=== PATIENT | male | born 1980 | race Caucasian/White ===

== ENCOUNTER 2019-05-17 09:13 | Observation (INO) ==
[2019-05-15 10:43] LABS: Basophils # (auto) 0.06 K/uL (0-0.2); Basophils % (auto) 0.7 %; Eosinophils # (auto) 0.17 K/uL (0-0.5); Eosinophils % (auto) 2.1 %; Hematocrit (blood only) 43.4 % (42-52); Hemoglobin 15.3 g/dL (14.0-18.0); Immature Granulocytes # (auto) 0.01 K/uL (0.00-0.02); Immature Granulocytes % (auto) 0.1 %; Lymphocytes # (auto) 2.12 K/uL (1.2-3.4); Lymphocytes % (auto) 26.3 %; Mean Corpuscular Hgb Conc 35.3 g/dL (32-36); Mean Corpuscular Volume 86.6 fL (80-100); Mean Platelet Volume 10.3 fL (7.4-10.4); Monocytes % (auto) 7.4 %; Neutrophils # (auto) 5.11 K/uL (1.4-6.5); Neutrophils % (auto) 63.4 %; Platelet Count 272 K/uL (130-400); RDW Coefficient of Variation 12.9 % (11.5-14.5); RDW Standard Deviation 41.2 fL (36.4-46.3); Red Blood Count 5.01 M/uL (4.7-6.1); White Blood Count 8.07 K/uL (4.8-10.8)
[2019-05-15 10:49] LABS: BUN Creatinine Ratio 11.6 (10-20); Blood Urea Nitrogen 10 mg/dl (7-18); Calcium 9.2 mg/dl (8.5-10.1); Carbon Dioxide 28 mmol/L (21-32); Chloride 107 mmol/L (98-107); Est GFR (African American) 125.7; Est GFR (Non-African American) 108.5; Glucose 90 mg/dl (70-99); Potassium 4.1 mmol/L (3.5-5.1); Sodium 141 mmol/L (136-145)
--- NOTE | 2019-05-16 13:07 | Anesthesiology Consultation ---
Date of Service May 16, 2019 Assessment & Plan (1) Encounter for pre-operative examination: - No previous anesthesia records Chart Review Chart Review: Acceptable Risk for Surgery and Patient NOT seen in Pre Admission Testing Consults Requested none History Surgery Operation Date: 05/17/19 10:20 Proposed Procedures p Total Thyroidectomy - Georgina Lopez MD s Left Radical Node Dissection, Right Selective Node Dissection - Georgina Lopez MD Height/Weight Height: 5 ft 9 in Weight: 108.862 kg Allergies Allergy/AdvReac Type Severity Reaction Status Date / Time haloperidol [From Haldol] Allergy Unknown swelling Verified 05/16/19 11:01 of tongue & throat Medications Home Medications Medication Instructions Recorded Confirmed Last Taken acetaminophen 650 mg PO TID 05/16/19 05/16/19 Unknown aripiprazole 5 mg PO QAM 05/16/19 05/16/19 Unknown bisacodyl 20 mg PO 1500 PRN 05/16/19 05/16/19 Unknown polyethylene glycol 3350 [Miralax] 17 g PO DAILY PRN 05/16/19 05/16/19 Unknown prazosin 2 mg PO HS 05/16/19 05/16/19 Unknown Past Medical History Medical History ADHD Back pain Bipolar disorder Cancer Metastatic papillary thyroid carcinoma GERD (gastroesophageal reflux disease) Diet Controlled Kidney stones Post traumatic stress disorder Temporomandibular joint disorder per pre-anesthesia questionnaire Weight loss, unintentional Past Surgical History Surgical History History of lithotripsy History of open reduction and internal fixation (ORIF) procedure left femur History of surgery on arm left forearm repair of fracture Social History Smoking Status: Unknown if ever smoked Hx Alcohol Use: No Hx Substance Use: No Testing Laboratory Results 05/15/19 Unknown 05/15/19 Unknown Electrocardiogram Date: 05/15/19 Findings: + SB @ (58) Chest X-Ray Date: 05/15/19 Findings: + NAD Other Testing PET/CT 05/13/19 IMPRESSION: 1. Numerous enlarged bilateral cervical lymph nodes consistent with the history of metastatic thyroid carcinoma. Minimal FDG uptake within these nodes which is not unexpected in papillary thyroid carcinoma. 2. Several prominent upper mediastinal lymph nodes which also likely reflect patrica spread of disease. 3. Decreased sensitivity for additional sites of metastatic thyroid carcinoma diminished given low radiotracer uptake.
--- NOTE | 2019-05-16 15:06 | History & Physical Report ---
Date of Service May 16, 2019 Assessment & Plan (1) Metastatic papillary carcinoma: Total thyroidectomy with left radical neck dissection and right functional neck dissection History of Present Illness Chief Complaint: Metastatic papillary carcinoma of the thyroid Primary Care Provider: LEODAN Huynh 38-year-old with a large 5 cm left neck mass found to have metastatic papillary carcinoma of the thyroid by needle biopsy and also right-sided level [address] scan Allergies Allergy/AdvReac Type Severity Reaction Status Date / Time haloperidol [From Haldol] Allergy Unknown swelling Verified 05/16/19 11:01 of tongue & throat Home Medications Home Medications Medication Instructions Recorded Confirmed Type acetaminophen 650 mg PO TID 05/16/19 05/16/19 History aripiprazole 5 mg PO QAM 05/16/19 05/16/19 History bisacodyl 20 mg PO 1500 PRN 05/16/19 05/16/19 History polyethylene glycol 3350 [Miralax] 17 g PO DAILY PRN 05/16/19 05/16/19 History prazosin 2 mg PO HS 05/16/19 05/16/19 History Past Med/Surg History Medical History ADHD Back pain Bipolar disorder Cancer Metastatic papillary thyroid carcinoma GERD (gastroesophageal reflux disease) Diet Controlled Kidney stones Post traumatic stress disorder Temporomandibular joint disorder per pre-anesthesia questionnaire Weight loss, unintentional Surgical History History of lithotripsy History of open reduction and internal fixation (ORIF) procedure left femur History of surgery on arm left forearm repair of fracture Social History Current Living Situation Comment: leodan huynh Smoking Status: Unknown if ever smoked Hx Alcohol Use: No Hx Substance Use: No Physical Exam Constitutional: WD/WN, vitals as above Eyes: PERRL, conjunctivae normal, anicteric sclerae ENMT: external ear and nose normal, oropharynx normal Neck: 5 cm firm left neck mass Respiratory: normal respiratory effort, lungs clear to auscultation Cardiovascular: RRR, no murmur, no edema
[~2019-05-17 09:13] MED LIST: LR 15ML/HR IV SCH
[2019-05-17] MEDS ORDERED: ROCURONIUM BROMIDE 10 MG/ML 5 ML VIAL ONE ×2 (09:55→12:13)
[2019-05-17] MEDS ORDERED: LIDOCAINE HCL 2% 2 ML VIAL/AMP(20MG/ML) INFIL ONE ×2 (09:55→12:13)
[2019-05-17] MEDS ORDERED: PROPOFOL IV EMULSION 10 MG/ML 20 ML VIAL IV ONE ×2 (09:55→12:13)
[2019-05-17] MEDS ORDERED: MIDAZOLAM HCL 1 MG/ML 2ML VIAL ONE (09:55)
[2019-05-17] MEDS ORDERED: fentaNYL citrate 100 MCG/2 ML VIAL ONE ×2 (09:55→11:45)
--- NOTE | 2019-05-17 10:27 | History & Physical Bridge Note ---
Date of Service May 17, 2019 History & Physical Bridge Note I have examined the patient, reviewed the History & Physical and in the interval since the performance of the History & Physical I have noted the following changes of clinical significance: no changes noted
[2019-05-17] MEDS ORDERED: LIDOCAINE/EPINE 2% 1:100,000 20ML ONE (10:44)
[2019-05-17] MEDS ORDERED: BACITRACIN OINT 15 GM TUBE ONE (10:44)
[2019-05-17] MEDS ORDERED: CEFAZOLIN 250 MG/ML 1 GM VIAL ONE (11:44)
[2019-05-17] MEDS ORDERED: CEFAZOLIN 2000MG 2,000 MG/15 ML SYR IV ONE (11:45)
[2019-05-17] MEDS ORDERED: LABETALOL HCL IV 5 MG/ML 20ML IV PRN (12:04)
[2019-05-17] MEDS ORDERED: FLUMAZENIL 0.1 MG/1 ML 10 ML VIAL IV PRN (12:04)
[2019-05-17] MEDS ORDERED: ONDANSETRON INJ 2 MG/ML 2 ML VIAL IV PRN ×2 (12:04→16:42)
[2019-05-17] MEDS ORDERED: PROMETHAZINE HCL 12.5 MG in SODIUM CHLORIDE 0.9% 50 ML IV PRN (12:04)
[2019-05-17] MEDS ORDERED: ATROPINE SULFATE 0.1 MG/ML 10ML SYR IV PRN (12:04)
[2019-05-17] MEDS ORDERED: NALOXONE HCL 0.4 MG/1 ML VIAL/CARP IV PRN (12:04)
[2019-05-17] MEDS ORDERED: ePHEDrine sulfate 50 MG/ML AMP IV PRN (12:04)
[2019-05-17] MEDS ORDERED: ONDANSETRON INJ 2 MG/ML 2 ML VIAL ONE ×2 (12:13→15:28)
[2019-05-17] MEDS ORDERED: HYDROmorphone INJ 2 MG/ML SYR/VIAL ONE (12:41)
[2019-05-17] MEDS ORDERED: ALBUMIN HUMAN 5% 12.5 GM/250 ML VIAL IV ONE (13:23)
[2019-05-17] MEDS ORDERED: ePHEDrine sulfate 50 MG/ML SYR ONE (13:26)
[2019-05-17] MEDS ORDERED: PHENYLEPHRINE 100MCG/ML 5ML SYR ONE (13:26)
[2019-05-17] MEDS ORDERED: NEOSTIGMINE METHYLSULFATE 5 MG/5 ML SYR ONE (14:29)
[2019-05-17] MEDS ORDERED: GLYCOPYRROLATE 0.2 MG/ML VIAL ONE (14:29)
[2019-05-17] MEDS: HYDROmorphone INJ 1 MG/ML SYRINGE IV PRN ×7 (16:37→17:15)
--- NOTE | 2019-05-17 17:00 | Operative Report ---
Post Operative Report Pre & Post Diagnosis Operation Date: 05/17/19 10:20 Pre-Op Diagnosis: Metastatic papillary carcinoma Post-Op Diagnosis: Metastatic papillary carcinoma Procedure Operation Date: 05/17/19 10:20 Actual Procedures p Total Thyroidectomy, left radical neck dissection, right selective node dissection(Bilateral) - Georgina Lopez MD Surgeon Georgina Lopez MD Gar[employer] Installer None Estimated Blood Loss 300 Findings Consistent with Post-Op Diagnosis Large left neck tumor invading jugular vein Specimens Left modified neck contents, total thyroidectomy, and selective right neck node excision Drains Thai-Deshpande Anesthesia Type General Complications none Disposition Accompanied Patient To Recovery: Yes Disposition: Recovery Room Indications 38-year-old with large 4.1 cm firm semi-fixed left neck mass and a 1.9 cm node on the right neck with needle biopsy showing papillary carcinoma of the thyroid Description of Procedure He was brought to the operating room, properly identified, prepped with ChloraPrep and draped in the usual sterile manner after general endotracheal anesthesia. The neck was hyperextended for thyroidectomy. The incision line was marked and was extended horizontal thyroidectomy incision extending laterally to the trapezius muscle left neck and extending superiorly to just b elow the mastoid process and also extending the thyroid incision on the right side to the trapezius and following the trapezius slightly upward. The incision line was injected with 2% Xylocaine with 1-100,000 strength epinephrine and then the incision was made using the #10 and #15 blade carrying the incision down through the skin and subcutaneous layer and through the platysma layer and then elevating superior and inferior and posterior skin flaps to expose the surgical field up to the hyoid superiorly and to both trapezius muscles. Bleeders were controlled using the Bovie and bipolar cautery. The left neck dissection was carried out by dissecting the supra-auricular fat pad following the clavicle all the way laterally to the trapezius and then following the trapezius superiorly to the greater auricular nerve and then identifying the spinal accessory nerve at Erb's point and then following the nerve superiorly underneath the sternocleidomastoid preserving the sternocleidomastoid by peeling the fascia away from the muscle and then dissecting the supra clavicular fat pad and the left posterior neck level 5 nodes away from the scalene muscles using the harmonic scalpel and the Metzenbaum scissors. The large node was found beneath the sternocleidomastoid muscle and was delivered underneath the sternocleidomastoid muscle anteriorly noting that the tumor was adherent to the jugular vein. The jugular vein was dissected free clamped below and above the tumor, divided, suture ligated using 2-0 silk vascular sutures superiorly and inferiorly. The midportion of the jugular vein was dissected along with the large tumor anteriorly to the carotid sheath and then dissected away from the carotid sheath and freed and sent as level 234 and 5 nodes. Hemostasis was controlled using the bipolar cautery and use of Iliana powder. Attention was turned to the right neck or posterior neck dissection was performed in the level 5 area identifying the 1.9 cm node just posterior to the jugular vein, preserving the jugular vein and dissecting the node away from the vein and resecting the nose along with the supra clavicular fat pad with the level 5 nodes. At this point midline dissection was performed the sternal hyoid and the sternal thyroid muscles and dissecting these muscles away from the thyroid gland supposing the thyroid gland and dissecting both superior poles with the harmonic scalpel and then dissecting both inferior poles with the harmonic scalpel clamping and dividing the inferior thyroidal artery and vein and also the superior thyroidal artery and vein and also the middle thyroidal vein freeing up both lobes of the thyroid. The recurrent laryngeal nerve was identified on the left side entering the cricothyroid membrane and then the left lobe was dissected free by dividing the suspensory ligament. The recurrent laryngeal nerve was also found on the right side and dissected free by dividing the suspensory ligament. In this manner the entire gland of the thyroid was removed in one piece. Hemostasis was controlled using the bipolar cautery and using Iliana powder. After obtaining adequate hemostasis a Thai-Deshpande drain was placed into the thyroid bed and into the left neck exiting the left supraclavicular area and sewn in place with 2-0 silk suture. The incision was closed with interrupted 3-0 Vicryl sutures on the platysma layer, interrupted 3- 0 Vicryl sutures on the subcutaneous layer and skin dong. A light pressure dressing was placed. He tolerated the procedure well and was taken to the recovery area in satisfactory condition where he was noted to have a normal voice. He will be admitted overnight with monitoring of serum calcium. I attest to the content of the Intraoperative Record and any orders documented therein. Any exceptions are noted below.
[2019-05-17] MEDS ORDERED: KETOROLAC 30 MG/ML VIAL ONE (17:26)
--- NOTE | 2019-05-17 17:34 | Anesthesiology Progress Note ---
Date of Service May 17, 2019 Anesthesia Post Procedure Vital Signs Vital Signs: Temp Pulse Pulse Resp BP Pulse Ox 05/17/19 17:20 37.0 C 92 H 16 132/79 94 05/17/19 17:10 36.5 C 87 16 121/81 93 05/17/19 17:00 36.5 C 96 H 16 127/80 96 05/17/19 16:50 36.5 C 98 H 16 139/85 94 05/17/19 16:40 36.5 C 94 H 16 133/80 95 05/17/19 16:30 36.5 C 100 H 16 126/81 91 05/17/19 16:24 36.5 C 109 H 10 L 118/85 93 05/17/19 10:04 36.9 C 66 18 117/79 98 Pain Intensity Posterior Head: Pain Intensity: 8 Transfer of Care Handoff Completed per policy Notes Mental Status: alert / awake / arousable Patient Amnestic to Procedure: Yes Nausea / Vomiting: adequately controlled Pain: adequately controlled Airway Patency, RR, SpO2: stable & adequate BP & HR: stable & adequate Hydration State: stable & adequate Anesthetic Complications: no major complications apparent
[2019-05-17 18:46] LABS: Calcium 8.1 mg/dl (8.5-10.1)
[2019-05-17 18:51] LABS: Albumin Level 3.8 gm/dl (3.4-5.0); Phosphorus 3.9 mg/dl (2.5-4.9)
[2019-05-17] MEDS: KETOROLAC 30 MG/ML VIAL IV PRN (20:24)
[2019-05-17] MEDS: OXYCODONE/ACETAMINOPHEN 5mg/325mg TAB PO PRN (21:31)
[2019-05-18] MEDS: OXYCODONE/ACETAMINOPHEN 5mg/325mg TAB PO PRN ×3 (01:08→11:01)
[2019-05-18] MEDS: LACTATED RINGER'S 1,000 ML IV SCH ×2 (01:11→12:16)
[2019-05-18] MEDS: KETOROLAC 30 MG/ML VIAL IV PRN ×2 (02:27→08:51)
--- NOTE | 2019-05-18 10:12 | Surgery Progress Note ---
Date of Service May 18, 2019 Assessment & Plan (1) Metastatic papillary carcinoma: Doing well status post thyroidectomy, incision site clean with no sign of hematoma, calcium 8.1. He will be discharged and transferred to the [facility] where he will receive further care. Subjective Feels well healing after thyroidectomy Physical Exam Neck: The incision line is clean dressing in place and Thai-Deshpande drain had 100 cc of drainage Respiratory: normal respiratory effort, lungs clear to auscultation Cardiovascular: RRR, no murmur, no edema Results & Data Vital Signs (Past 12 Hours) Vital Signs Temp Pulse Resp BP Pulse Ox 05/18/19 02:48 36.7 C 71 16 112/70 97 05/17/19 23:06 36.8 C 74 15 110/72 97
--- NOTE | 2019-05-18 10:17 | Discharge Summary ---
Date of Service May 18, 2019 Admission HPI Per Admitting Provider 38-year-old with a large 5 cm left neck mass found to have metastatic papillary carcinoma of the thyroid by needle biopsy and also right-sided level [address] scan Admission Exam (Per Admitting) Neck Status post total thyroidectomy and left modified neck dissection and right selective node dissection with incision line clean and healing well with no sign of hematoma with Thai-Deshpande drain in place. Discharge Data Procedures Performed Operation Date: 05/17/19 10:20 Actual Procedures p Total Thyroidectomy, left radical neck dissection, right selective node dissection(Bilateral) - Georgina Lopez MD Discharge Instructions He is to be transferred to [facility] for further monitoring. Please give Percocet as needed for pain and change to the Toradol in 7 days when there is no further bleeding. Please remove the drain next week when the drainage dropped below 30 cc/day. Please remove the dong in 10 days. Please arrange for radioactive iodine treatment approximately 6 weeks after surgery.
== END 2019-05-18 14:16 ==
LOC: 3W 09:13 → ASU 09:13
DX: F90.9 Attention-deficit hyperactivity disorder, unspecified type; K21.9 Gastro-esophageal reflux disease without esophagitis; Z79.899 Other long term (current) drug therapy; R63.4 Abnormal weight loss; C73 Malignant neoplasm of thyroid gland; R22.1 Localized swelling, mass and lump, neck; C79.89 Secondary malignant neoplasm of other specified sites; Z88.8 Allergy status to other drugs, medicaments and biological substances; F31.9 Bipolar disorder, unspecified

== ENCOUNTER 2019-05-26 20:37 | Inpatient (IN) ==
[2019-05-26] MEDS ORDERED: SODIUM CHLORIDE 0.9% 1000ML 1,000 ML IV SCH (21:00)
[2019-05-26 21:27] LABS: iSTAT Creatinine 0.9 mg/dl (0.6-1.3); iSTAT Hemoglobin 13.9 g/dl (14.0-18.0); iSTAT Ionized Calcium 1.21 mmol/l (1.12-1.32); iSTAT Potassium 3.6 mEq/L (3.3-5.0)
--- NOTE | 2019-05-26 21:29 | XRay Report ---
XR chest 1V portable HISTORY: weakness COMPARISON: Chest 07/08/2013. FINDINGS: The lungs are clear. Cardiac silhouette is normal in size. No pleural effusions. No pneumot horax. Skin dong along the lower neck. The trachea appears midline and patent. IMPRESSION: Postoperative changes within the lower neck. No acute process within the chest. Electronically signed by: Yury Gagnon M.D. 05/26/2019 9:28 PM
[2019-05-26] MEDS ORDERED: IOVERSOL 100ml IV PRN (21:32)
[2019-05-26 21:36] LABS: Basophils # (auto) 0.03 K/uL (0-0.2); Basophils % (auto) 0.3 %; Eosinophils # (auto) 0.28 K/uL (0-0.5); Eosinophils % (auto) 3.1 %; Hematocrit (blood only) 40.3 % (42-52); Hemoglobin 14.3 g/dL (14.0-18.0); Immature Granulocytes # (auto) 0.02 K/uL (0.00-0.02); Immature Granulocytes % (auto) 0.2 %; Lymphocytes # (auto) 2.73 K/uL (1.2-3.4); Lymphocytes % (auto) 30.3 %; Mean Corpuscular Hemoglobin 30.8 pg (25-34); Mean Corpuscular Hgb Conc 35.5 g/dL (32-36); Mean Corpuscular Volume 86.9 fL (80-100); Mean Platelet Volume 9.5 fL (7.4-10.4); Monocytes # (auto) 0.65 K/uL (0.11-0.59); Monocytes % (auto) 7.2 %; Neutrophils # (auto) 5.31 K/uL (1.4-6.5); Neutrophils % (auto) 58.9 %; Platelet Count 341 K/uL (130-400); RDW Coefficient of Variation 13.6 % (11.5-14.5); RDW Standard Deviation 42.5 fL (36.4-46.3); Red Blood Count 4.64 M/uL (4.7-6.1); White Blood Count 9.02 K/uL (4.8-10.8)
[2019-05-26 21:55] LABS: Albumin Level 3.7 gm/dl (3.4-5.0); BUN Creatinine Ratio 11.4 (10-20); Calcium 8.9 mg/dl (8.5-10.1); Creatinine Clr Calc Pharmacy 134.4 ml/min; Est GFR (African American) 124.5; Est GFR (Non-African American) 107.5; Potassium 3.7 mmol/L (3.5-5.1)
[2019-05-26 21:58] LABS: Albumin Globulin Ratio 1.2 (0.9-2); Bilirubin,Total 0.2 mg/dl (0.2-1); Total Protein 6.7 gm/dl (6.4-8.2)
--- NOTE | 2019-05-26 21:58 | CT Scan Report ---
CT soft tissue neck w con HISTORY: swelling post thyroidectomy TECHNIQUE: Multiaxial CT images of the neck were performed following the use of intravenous contrast. COMPARISON STUDY: Neck CT 05/18/2019. FINDINGS: The visualized brain parenchyma and orbits are unremarkable. Skin dong at the anterior i nferior neck base and along the left side of the neck. There is progressive diffuse subcutaneous shakeel a within the neck most pronounced anteriorly. Trace fluid at the thyroidectomy site. Partially cystic lymphadenopathy is again noted. These remain unchanged. There are are a few enlarged retropharyngeal lymph nodes. This likely represents metastatic disease. Partially loculated left lateral neck/suprac lavicular fluid collection measuring 5.6 x 3.3 cm. This is lateral to the sternocleidomastoid muscle and deep to the incision site. Mildly enlarged and partially cystic superior mediastinal lymph nodes also consistent with metastatic disease. No pneumothorax. No suspicious lytic or blastic osseous lesi ons. The paranasal sinuses and mastoid air cells are clear. The carotid and vertebral arteries are pa tent. The right internal jugular vein is patent. The left internal jugular vein at the base of the ne ck appears thrombosed. This is similar to the prior study. Normal esophagus. There is mild submucosal edema within the hypopharynx including the epiglottis and supraglottic soft tissues. The epiglottis measures 3.5 mm in thickness. This results in partial effacement of the hypopharynx/airway of up to 5 0% compared to the prior study. Partially calcified left sublingual soft tissue density remains uncha nged. There is also a small amount of fluid surrounding the right sternocleidomastoid muscle. IMPRESSION: 1. Mild submucosal edema within the hypopharynx including the epiglottis and supraglottic soft tissue s. The epiglottis measures 3.5 mm in thickness. This results in partial effacement of the hypopharynx /airway at the level of the epiglottis and supraglottic soft tissues of up to 50% compared to the margot or study. Intubation could be performed for airway protection. 2. Subcutaneous edema has progressed throughout the neck. This is most pronounced anteriorly. 3. There is a partially loculated fluid collection within the left lateral neck base measuring 5.6 x 3.3 cm. This favors a postoperative seroma at this time. 4. Metastatic lymphadenopathy within the neck and chest is again noted. 5. The left internal jugular vein at the level of the neck base appears thrombosed. This is unchanged compared to the prior study. Electronically signed by: Yury Gagnon M.D. 05/26/2019 9:56 PM
[2019-05-26] MEDS ORDERED: PIPERACILLIN/TAZOBACTAM 4.5 GM/120 ML BAG IV ONE (23:15)
[2019-05-26] MEDS ORDERED: PIPERACILL/TAZOBAC CONSULT ACTIVE PRN (23:15)
[2019-05-26] MEDS ORDERED: HYDROmorphone INJ 0.5 MG/0.5 ML SYR IV PRN (23:16)
[2019-05-26] MEDS ORDERED: DEXAMETHASONE **PF** INJ 10 MG/ML VIAL IV ONE (23:17)
--- NOTE | 2019-05-26 23:44 | History & Physical Report ---
Date of Service May 26, 2019 Assessment & Plan (1) Post-operative pain: (2) Postoperative deep vein thrombosis: (3) Metastatic papillary carcinoma: (4) PTSD (post-traumatic stress disorder): (5) Partial obstruction of airway: 38-year-old male with history of metastatic papillary thyroid cancer status post total thyroidectomy (left radical neck dissection, right selective node dissection) on 05/17/[address] Lopez presents with worsening neck swelling and discomfort. Concern for submucosal edema causing partial airway obstruction, seroma and persistent left IJ vein thrombosis Partial airway obstruction secondary to submucosal edema and seroma Afebrile, on room air No WBC elevation CT neck ST 05/19/19: acute nearly occlusive deep venous thrombus within the left internal jugular vein; subcutaneous edema, deep tissue air with skin dong and surgical drainage catheter but no drainable fluid collection and airway was patent CT neck ST 05/26/19: Mild submucosal edema within the hypopharynx including the epiglottis and supraglottic soft tissues, epiglottis measures 3.5 mm in thickness resulting in partial effacement of the hypopharynx/airway at the level of the epiglottis and supraglottic soft tissues of up to 50% compared to the prior study; Subcutaneous edema has progressed throughout the neck most pronounced anteriorly; there is a partially loculated fluid collection within the left lateral neck base measuring 5.6 x 3.3 cm - favors a postoperative seroma, left IJ vein still thrombosed Chest x-ray negative Received dexamethasone and Zosyn in the ED On dexamethasone 4 mg every 6 hours scheduled and Zosyn Admitted to the ICU for observation and possible airway management 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 Montana spoken to by ED doc and will evaluate patient in the morning Left IJ vein thrombosis Thrombosis of jugular vein secondary to surgical ligation No anticoagulation required History of PTSD/bipolar Continue aripiprazole and prazosin FEN/GI: Normal saline 125 cc/h, n.p.o. for possible procedure DVT prophylaxis: SCD only, chemical not ordered in the setting of seroma Code: Full per discussion with patient (per patient he has DNR on record at the correction but he wishes resuscitation attempt -explained in that event he will not be DNR and patient advised to change records at correction) Disposition: ICU History of Present Illness Chief Complaint: Neck swelling and discomfort Primary Care Provider: LEODAN Huynh 38-year-old male with history of metastatic papillary thyroid cancer status post total thyroidectomy (left radical neck dissection, right selective node dissection) on 05/17/[address] Lopez presents with worsening neck swelling and discomfort. Patient had presented previously to the emergency room on 05/19/2019, was found to have acute nearly occlusive deep venous thrombus within the left internal jugular vein but not started on anticoagulation; subcutaneous edema, deep tissue air with skin dong and surgical drainage catheter but no drainable fluid collection and airway was patent. Today he presents with throat pain when eating or drinking especially foods that are not hot or cold and tightness in throat especially when he lays down. Associated with left shoulder and upper chest tightness as well, chills and sweats at night. Reports not getting adequate pain management at the [facility] and was sent back to the emergency room. Tonight he was found to have: Mild submucosal edema within the hypopharynx including the epiglottis and supraglottic soft tissues, epiglottis measures 3.5 mm in thickness resulting in partial effacement of the hypopharynx/airway at the level of the epiglottis and supraglottic soft tissues of up to 50% compared to the prior study; Subcutaneous edema has progressed throughout the neck most pronounced anteriorly; there is a partially loculated fluid collection within the left lateral neck base measuring 5.6 x 3.3 cm - favors a postoperative seroma, left IJ vein still thrombosed. Patient denies any shortness of breath and remains on room air in the ED. Denies any fever, chest pain, abdominal pain, nausea, vomiting, diarrhea, constipation, dysuria, hematuria. Allergies Allergy/AdvReac Type Severity Reaction Status Date / Time haloperidol [From Haldol] Allergy Severe Swelling Verified 05/26/19 22:57 of tongue and throat Home Medications Home Medications Medication Instructions Recorded Confirmed Type acetaminophen 650 mg PO TID PRN 05/16/19 05/26/19 History aripiprazole 5 mg PO QAM 05/16/19 05/26/19 History prazosin 2 mg PO HS 05/16/19 05/26/19 History ibuprofen 600 mg PO TID PRN 05/18/19 05/26/19 History Past Med/Surg History Medical History ADHD Back pain Bipolar disorder Cancer Metastatic papillary thyroid carcinoma GERD (gastroesophageal reflux disease) Diet Controlled Kidney stones Post traumatic stress disorder Temporomandibular joint disorder per pre-anesthesia questionnaire Weight loss, unintentional Surgical History History of lithotripsy History of open reduction and internal fixation (ORIF) procedure left femur History of surgery on arm left forearm repair of fracture Family History Other No pertinent family history Social History Current Living Situation Comment: leodan huynh Feels Safe at Home: Yes Smoking Status: Former smoker Hx Alcohol Use: No Hx Substance Use: No Review of Systems Review of Systems: As per HPI Physical Exam Physical Exam: General: In NAD Neuro: A&O x 4, CN 2-12 intact, PERRL Neck: surgical sutures intact with localized erythema, significant anterior neck and L sided neck fullness/edema and TTP, no crepitus, or erythema appreciated Pulm: CTAB equal breath sounds bilaterally, no stridor or use of accessory muscles CV: RRR, no m/r/g Abdomen:+BS, no TTP in all quadrants, non-distended LE: no LE edema, no calf TTP Results & Data Vital Signs (Past 12 Hours) Vital Signs Temp Pulse Resp BP Pulse Ox 05/26/19 22:20 64 7 L 97 05/26/19 22:10 69 9 L 97 05/26/19 22:00 67 12 130/82 96 05/26/19 21:50 68 9 L 91 05/26/19 21:42 74 12 135/86 97 05/26/19 21:13 97 05/26/19 21:11 77 95 05/26/19 21:09 78 117/91 96 05/26/19 21:00 17 05/26/19 20:58 74 19 05/26/19 20:40 36.8 C 76 18 142/86 H 99 Laboratory Results Abnormal lab results 05/26/19 05/26/19 05/26/19 Range/Units 20:56 20:56 21:13 RBC 4.64 L (4.7-6.1) M/uL POC Hgb 13.9 L (14.0-18.0) g/dl Hct 40.3 L (42-52) % POC Hct 41 L (42-52) % Sampson # (Auto) 0.65 H (0.11-0.59) K/uL Glucose 100 H (70-99) mg/dl AST 13 L (15-37) U/L Diagnostic Findings CT soft tissue neck w con HISTORY: swelling post thyroidectomy TECHNIQUE: Multiaxial CT images of the neck were performed following the use of intravenous contrast. COMPARISON STUDY: Neck CT 05/18/2019. FINDINGS: The visualized brain parenchyma and orbits are unremarkable. Skin dong at the anterior inferior neck base and along the left side of the neck. There is progressive diffuse subcutaneous edema within the neck most pronounced anteriorly. Trace fluid at the thyroidectomy site. Partially cystic lymphadenopathy is again noted. These remain unchanged. There are are a few enlarged retropharyngeal lymph nodes. This likely represents metastatic disease. Partially loculated left lateral neck/supraclavicular fluid collection measuring 5.6 x 3.3 cm. This is lateral to the sternocleidomastoid muscle and deep to the incision site. Mildly enlarged and partially cystic superior mediastinal lymph nodes also consistent with metastatic disease. No pneumothorax. No suspicious lytic or blastic osseous lesions. The paranasal sinuses and mastoid air cells are clear. The carotid and vertebral arteries are patent. The right internal jugular vein is patent. The left internal jugular vein at the base of the neck appears thrombosed. This is similar to the prior study. Normal esophagus. There is mild submucosal edema within the hypopharynx including the epiglottis and supraglottic soft tissues. The epiglottis measures 3.5 mm in thickness. This results in partial effacement of the hypopharynx/airway of up to 50% compared to the prior study. Partially calcified left sublingual soft tissue density remains unchanged. There is also a small amount of fluid surrounding the right sternocleidomastoid muscle. IMPRESSION: 1. Mild submucosal edema within the hypopharynx including the epiglottis and supraglottic soft tissues. The epiglottis measures 3.5 mm in thickness. This results in partial effacement of the hypopharynx/airway at the level of the epiglottis and supraglottic soft tissues of up to 50% compared to the prior study. Intubation could be performed for airway protection. 2. Subcutaneous edema has progressed throughout the neck. This is most pronounced anteriorly. 3. There is a partially loculated fluid collection within the left lateral neck base measuring 5.6 x 3.3 cm. This favors a postoperative seroma at this time. 4. Metastatic lymphadenopathy within the neck and chest is again noted. 5. The left internal jugular vein at the level of the neck base appears thrombosed. This is unchanged compared to the prior study. XR chest 1V portable HISTORY: weakness COMPARISON: Chest 07/08/2013. FINDINGS: The lungs are clear. Cardiac silhouette is normal in size. No pleural effusions. No pneumothorax. Skin dong along the lower neck. The trachea appears midline and patent. IMPRESSION: Postoperative changes within the lower neck. No acute process within the chest. Code Status & VTE Plan Code Status Full VTE Prophylaxis Plan VTE Prophylaxis will be ordered: Yes Supervising Physician Co-Signing Physician Notes Patient seen and examined, chart reviewed, case discussed with Dr. Al and I agree with her assessment and plan as documented above. Briefly patient is a 38-year-old male with history of papillary thyroid cancer status post total thyroidectomy performed by Dr. Lopez on 05-17-19 presenting with worsening neck swelling and pain. Patient seen for the same on 825. He denies shortness of breath, stridor Physical exam he is afebrile, hemodynamically stable, adequate oxygen saturation on room air HEENT: Surgical wound with dong in place, well approximated with no bleeding/drainage/dehiscence. Tissue surrounding incision is swollen and tender, but soft. No stridor Heart: S1-S2 present, regular, no murmurs rubs gallops Lungs: CTA Abdomen: Soft, nontender nondistended Extremities: No edema Labs and images reviewed CT soft tissue neck with contrast iMPRESSION: 1. Mild submucosal edema within the hypopharynx including the epiglottis and supraglottic soft tissues. The epiglottis measures 3.5 mm in thickness. This results in partial effacement of the hypopharynx/airway at the level of the epiglottis and supraglottic soft tissues of up to 50% compared to the prior study. Intubation could be performed for airway protection. 2. Subcutaneous edema has progressed throughout the neck. This is most pronounced anteriorly. 3. There is a partially loculated fluid collection within the left lateral neck base measuring 5.6 x 3.3 cm. This favors a postoperative seroma at this time. 4. Metastatic lymphadenopathy within the neck and chest is again noted. 5. The left internal jugular vein at the level of the neck base appears thr ombosed. This is unchanged compared to the prior study. Per review of ER records from 05/19 in regards to the left IJ thrombosis. This was discussed between Dr. Veras and Dr. Lopez. Dr. Lopez reports that the tumor ran throughout the jugular vein and during the surgical procedure he had to clamp and ligate the jugular vein. Finding of thrombosis was expected. No need for anticoagulation. Assessment/plan. 38-year-old male status post thyroidectomy for papillary thyroid cancer presenting with worsening edema of the soft tissues, epiglottis and supraglottic as well as a seroma in the lateral neck base. Concern for airway encroachment. Patient at this time is perfectly stable from a respiratory standpoint. No stridor or shortness of breath. He does report a feeling of fullness in his neck but this has not progressed. I explained to him that the swelling could continue and that he may need a breathing tube. Patient voiced understanding and is agreeable to having a tube placed should it become necessary. Today the case was discussed between ER attending and covering ENT physician Dr. Montana -Observation in the MICU -Dexamethasone for airway edema -Empiric Lovenox -Manger plan as above PG Care Time/CCT Total # of Minutes Spent Total Time Spent with Patient: Total time spent is greater than 50% in coordination of care (as documented) at patient's floor/unit and/or counseling patient: Resident Activity Tracking Resident Involvement: Resident Care Provided Care Provided: Adult Hospital Medicine (1) Postoperative deep vein thrombosis Encounter type: initial encounter Qualified Code(s): T81.89XA - Other complications of procedures, not elsewhere classified, initial encounter; I82.409 - Acute embolism and thrombosis of unspecified deep veins of unspecified lower extremity
--- NOTE | 2019-05-27 01:09 | Emergency Department Note ---
Entered by Joann Sierra acting as a scribe for Yolanda Marshall MD History of Present Illness General Chief complaint: Throat Pain Stated complaint: SWELLING - CANT SWALLOW Source: patient History of Present Illness Onset (ago): day(s) (earlier today) Location: neck Pain Consistency: + constant Maximum Pain Intensity: 9 Quality: + other (swelling) Associated symptoms: + shortness of breath (while lying down) and + other (pain while taking a deep breath, scratchy throat); no fever/chills The patient is a 38 year old male who presents to the Emergency Room with complaints of constant pain and swelling in his neck beginning earlier today. The patient reports having thyroid cancer surgery done by Dr. Lopez 05/17 at our facility. He states that he went to the [facility] for the swelling today asking for an ice pack and was referred to the ER as the neck "looked worse." He reports pain while taking a deep breath and a scratchy throat. He also notes shortness of breath when lying down. He denies any fever. Home Medications Home Medications Medication Instructions Recorded Confirmed Type acetaminophen 650 mg PO TID PRN 05/16/19 05/26/19 History aripiprazole 5 mg PO QAM 05/16/19 05/26/19 History prazosin 2 mg PO HS 05/16/19 05/26/19 History ibuprofen 600 mg PO TID PRN 05/18/19 05/26/19 History Allergies Allergy/AdvReac Type Severity Reaction Status Date / Time haloperidol [From Haldol] Allergy Severe Swelling Verified 05/26/19 22:57 of tongue and throat Past Med/Surg History Medical History ADHD Back pain Bipolar disorder Cancer Metastatic papillary thyroid carcinoma GERD (gastroesophageal reflux disease) Diet Controlled Kidney stones Post traumatic stress disorder Temporomandibular joint disorder per pre-anesthesia questionnaire Weight loss, unintentional Surgical History History of lithotripsy History of open reduction and internal fixation (ORIF) procedure left femur History of surgery on arm left forearm repair of fracture Family History Other No pertinent family history Social History Current Living Situation Comment: [facility] Feels Safe at Home: Yes Smoking Status: Former smoker Hx Alcohol Use: No Hx Substance Use: No Review of Systems See HPI for pertinent positives & negatives. and A total of 10 systems reviewed and were otherwise negative Physical Exam Vital Signs Vital Signs - 24 hr 05/26/19 20:40 05/26/19 20:58 05/26/19 21:00 Temperature 36.8 C Temperature Source Oral Sepsis Recent Fever Within 48 Hours No Sepsis New/Unexplained Change in Mental Status No Sepsis Action Taken by Nursing No Action Required Pulse Rate 76 74 Pulse Rate from SpO2 Sensor Pulse Rhythm Regular Pulse Strength Normal Respiratory Rate 18 19 17 Respiratory Effort / Characteristics Non-Labored Respiratory Depth Normal Blood Pressure 142/86 H Blood Pressure Mean 104 Blood Pressure Position Sitting Pulse Oximetry 99 Oxygen Delivery Method Room Air 05/26/19 21:09 05/26/19 21:11 05/26/19 21:13 Temperature Temperature Source Sepsis Recent Fever Within 48 Hours Sepsis New/Unexplained Change in Mental Status Sepsis Action Taken by Nursing Pulse Rate 78 77 Pulse Rate from SpO2 Sensor 77 76 Pulse Rhythm Pulse Strength Respiratory Rate Respiratory Effort / Characteristics Respiratory Depth Blood Pressure 117/91 Blood Pressure Mean 99 Blood Pressure Position Pulse Oximetry 96 95 97 Oxygen Delivery Method Room Air Room Air Room Air 05/26/19 21:42 05/26/19 21:50 05/26/19 22:00 Temperature Temperature Source Sepsis Recent Fever Within 48 Hours Sepsis New/Unexplained Change in Mental Status Sepsis Action Taken by Nursing Pulse Rate 74 68 67 Pulse Rate from SpO2 Sensor 74 69 66 Pulse Rhythm Pulse Strength Respiratory Rate 12 9 L 12 Respiratory Effort / Characteristics Respiratory Depth Blood Pressure 135/86 130/82 Blood Pressure Mean 102 98 Blood Pressure Position Pulse Oximetry 97 91 96 Oxygen Delivery Method Room Air 05/26/19 22:10 05/26/19 22:20 Temperature Temperature Source Sepsis Recent Fever Within 48 Hours Sepsis New/Unexplained Change in Mental Status Sepsis Action Taken by Nursing Pulse Rate 69 64 Pulse Rate from SpO2 Sensor 70 64 Pulse Rhythm Pulse Strength Respiratory Rate 9 L 7 L Respiratory Effort / Characteristics Respiratory Depth Blood Pressure Blood Pressure Mean Blood Pressure Position Pulse Oximetry 97 97 Oxygen Delivery Method Vital signs reviewed. General: Well-appearing middle aged male, in no significant distress. Resting in bed comfortably. HEENT:Large incision to the inferior part of neck anteriorly, dong in place, moderate amount soft tissue, swelling from mandible to incision site, positive tenderness, no palpable fluid collection and no drainage , posterior oropharynx is clear No scleral icterus, PERRLA, neck supple. No stridor. Cardiovascular: Regular rate and rhythm, no extra sounds. Pulmonary: Clear to auscultation bilaterally, normal work of breathing. Abdomen: Soft, nontender, nondistended, positive bowel sounds. Musculoskeletal: Atraumatic, no peripheral edema. Neurologic: Patient awake alert and oriented x 3 Skin: Warm, dry, no rash Course 2100: Past medical records reviewed. The patient was evaluated in room A04. A complete history and physical exam was performed. 2344: Upon reevaluation, I discussed findings and results with the patient. He verbalized agreement of the treatment plan. I spoke with Dr. Ordaz of the [facility] Hospitalist Service. The patient will be evaluated for further management and care. Administered Medications Hydromorphone HCl (Dilaudid) 0.5 mg IV Q30M PRN PRN Reason: Pain Stop: 06/09/19 23:15 Last Admin: 05/26/19 23:35 Dose: 0.5 mg Documented by: [id number] Sodium Chloride (Nss 1000ml) 1,000 mls @ 125 mls/hr IV .Q8H RENARD Stop: 05/27/19 04:59 Last Admin: 05/26/19 21:08 Dose: 125 mls/hr Documented by: [id number] Ioversol (Optiray 320 100ml) 94 ml IV ONCE PRN PRN Reason: Interaction Checking Stop: 05/30/19 21:31 Last Admin: 05/26/19 21:32 Dose: 94 ml Documented by: [id number] Discontinued Medications Dexamethasone Sodium Phosphate (Decadron Pf) 10 mg IV NOW ONE Stop: 05/26/19 23:18 Last Admin: 05/26/19 23:34 Dose: 10 mg Documented by: [id number] Piperacillin Sod/Tazobactam Sod (Zosyn) 4.5 gm in 120 mls @ 240 mls/hr IV NOW ONE Stop: 05/26/19 23:44 Last Infusion: 05/27/19 00:28 Dose: 0 mls/hr Documented by: [id number] Admin: 05/26/19 23:34 Dose: 240 mls/hr Documented by: [id number] Medical Decision Making Differential Diagnosis Differential diagnosis: Post-operative hematoma, seroma, abscess, cellulitis, DVT Medical Records Attestation: I reviewed the patient's medical records. Home Medications Current Medication List: was personally reviewed by me Laboratory Data Attestation: I reviewed the patient's lab results. Result diagrams: 05/26/19 20:56 05/26/19 20:56 Lab Results 05/26/19 05/26/19 05/26/19 Range/Units 20:56 20:56 21:13 WBC 9.02 (4.8-10.8) K/uL RBC 4.64 L (4.7-6.1) M/uL Hgb 14.3 (14.0-18.0) g/dL POC Hgb 13.9 L (14.0-18.0) g/dl Hct 40.3 L (42-52) % POC Hct 41 L (42-52) % MCV 86.9 (80-100) fL MCH 30.8 (25-34) pg MCHC 35.5 (32-36) g/dL RDW Std Deviation 42.5 (36.4-46.3) fL RDW Coeff of Regan 13.6 (11.5-14.5) % Plt Count 341 (130-400) K/uL MPV 9.5 (7.4-10.4) fL Immature Gran % (Auto) 0.2 % Neut % (Auto) 58.9 % Lymph % (Auto) 30.3 % Hudson % (Auto) 7.2 % Eos % (Auto) 3.1 % Baso % (Auto) 0.3 % Immature Gran # (Auto) 0.02 (0.00-0.02) K/uL Neut # (Auto) 5.31 (1.4-6.5) K/uL Lymph # (Auto) 2.73 (1.2-3.4) K/uL Hudson # (Auto) 0.65 H (0.11-0.59) K/uL Eos # (Auto) 0.28 (0-0.5) K/uL Baso # (Auto) 0.03 (0-0.2) K/uL POC Sodium 140 (135-144) mEq/L Sodium 140 (136-145) mmol/L POC Potassium 3.6 (3.3-5.0) mEq/L Potassium 3.7 (3.5-5.1) mmol/L POC Chloride 101 (101-112) mEq/L Chloride 107 (98-107) mmol/L Carbon Dioxide 27 (21-32) mmol/L POC Total CO2 27 (24-31) mEq/l Anion Gap 6.0 (3-11) POC Anion Gap 16.0 (16-25) mmol/L POC BUN 9 (7-18) mg/dl BUN 10 (7-18) mg/dl Creatinine 0.88 (0.6-1.4) mg/dl POC Creatinine 0.9 (0.6-1.3) mg/dl Est Cr Clr Drug Dosing 134.4 ml/min Est GFR ( Amer) 124.5 Est GFR (Non-Af Amer) 107.5 BUN/Creatinine Ratio 11.4 (10-20) Glucose 100 H (70-99) mg/dl POC Glucose (other) 98 (70-99) mg/dl Calcium 8.9 (8.5-10.1) mg/dl POC Ioniz Calcium Chelsea 1.21 (1.12-1.32) mmol/l Total Bilirubin 0.2 (0.2-1) mg/dl AST 13 L (15-37) U/L ALT 23 (12-78) U/L Alkaline Phosphatase 51 (45-117) U/L Total Protein 6.7 (6.4-8.2) gm/dl Albumin 3.7 (3.4-5.0) gm/dl Globulin 3.0 (2.5-4.0) gm/dl Albumin/Globulin Ratio 1.2 (0.9-2) Imaging Data Radiologist's Impression: Radiology results as stated below per my review and the radiologist's interpretation: XR chest 1V portable HISTORY: weakness COMPARISON: Chest 07/08/2013. FINDINGS: The lungs are clear. Cardiac silhouette is normal in size. No pleural effusions. No pneumothorax. Skin dong along the lower neck. The trachea appears midline and patent. IMPRESSION: Postoperative changes within the lower neck. No acute process within the chest. Electronically signed by: Yury Gagnon M.D. 05/26/2019 9:[address] soft tissue neck w con HISTORY: swelling post thyroidectomy TECHNIQUE: Multiaxial CT images of the neck were performed following the use of intravenous contrast. COMPARISON STUDY: Neck CT 05/18/2019. FINDINGS: The visualized brain parenchyma and orbits are unremarkable. Skin dong at the anterior inferior neck base and along the left side of the neck. There is progressive diffuse subcutaneous edema within the neck most pronounced anteriorly. Trace fluid at the thyroidectomy site. Partially cystic lymphade nopathy is again noted. These remain unchanged. There are are a few enlarged retropharyngeal lymph nodes. This likely represents metastatic disease. Partially loculated left lateral neck/supraclavicular fluid collection measuring 5.6 x 3.3 cm. This is lateral to the sternocleidomastoid muscle and deep to the incision site. Mildly enlarged and partially cystic superior mediastinal lymph nodes also consistent with metastatic disease. No pneumothorax. No suspicious lytic or blastic osseous lesions. The paranasal sinuses and mastoid air cells are clear. The carotid and vertebral arteries are patent. The right internal jugular vein is patent. The left internal jugular vein at the base of the neck appears thrombosed. This is similar to the prior study. Normal esophagus. There is mild submucosal edema within the hypopharynx including the epiglottis and supraglottic soft tissues. The epiglottis measures 3.5 mm in thickness. This results in partial effacement of the hypopharynx/airway of up to 50% compared to the prior study. Partially calcified left sublingual soft tissue density remains unchanged. There is also a small amount of fluid surrounding the right sternocleidomastoid muscle. IMPRESSION: 1. Mild submucosal edema within the hypopharynx including the epiglottis and supraglottic soft tissues. The epiglottis measures 3.5 mm in thickness. This results in partial effacement of the hypopharynx/airway at the level of the epiglottis and supraglottic soft tissues of up to 50% compared to the prior study. Intubation could be performed for airway protection. 2. Subcutaneous edema has progressed throughout the neck. This is most pronounced anteriorly. 3. There is a partially loculated fluid collection within the left lateral neck base measuring 5.6 x 3.3 cm. This favors a postoperative seroma at this time. 4. Metastatic lymphadenopathy within the neck and chest is again noted. 5. The left internal jugular vein at the level of the neck base appears thrombosed. This is unchanged compared to the prior study. Electronically signed by: Yury Gagnon M.D. 05/26/2019 9:56 PM ECG Data Attestation: I personally reviewed and interpreted this ECG as follows: Indication: other (post operative complications) Rate (beats per minute): 76 Rhythm: sinus rhythm Findings: + other (acute tc 445); no acute ischemic change and no ectopy Blood Pressure Blood Pressure Findings: Elevated blood pressure Blood Pressure Disposition: further management by hospitalist MDM Narrative This patient was evaluated and appeared to be in no significant distress. Physical examination reveals some submandibular swelling above the level of the incision at the base of the neck. There is no appreciable drainage or palpable fluid collection. Patient has no stridor on exam and no difficulty with his secretions. He is afebrile. IV access was obtained and laboratory work was drawn. The patient was placed on the pvc monitor. He is maintaining his oxygen saturations on room air. WBC is 9.02. CT scan of the soft tissue neck was performed and is read as above. There is concern for potential airway compromise and mild epiglottis thickening. There is a partially loculated fluid collection, likely seroma in the left lateral neck base approximately 5.6 x 3.3 cm. Patient was given 10 mg of IV dexamethasone as well as Zosyn 4.5 g IV. IV fluids were given. Patient did receive 0.5 mg of IV Dilaudid for his pain. Case was discussed with Dr. Montana of ENT. He has agreed to watchful waiting as the patient has no apparent airway compromise at this time. I do not feel intubation is clinically indicated currently. Patient will be observed in the ICU under Dr. Ordaz of the hospitalist service. Dr. Clark will evaluate the patient in consultation. Impression & Plan Postoperative edema, Cancer of thyroid, Postoperative seroma, Internal jugular vein thrombosis Discharge Plan Visit Data Chief Complaint: Throat Pain Stated Complaint: SWELLING - CANT SWALLOW ED Provider: Yolanda Marshall Discharge Problem: Postoperative edema, Cancer of thyroid, Postoperative seroma, Internal jugular vein thrombosis Patient Disposition: Being Evaluated by Hospitalist Forms Stand Alone Forms: My [facility] [place] [employer]eds[employer] Prescriptions Prescriptions: No Action acetaminophen 325 mg Tablet 650 mg PO TID PRN (Reason: Pain) RF: 0 prazosin 2 mg Capsule 2 mg PO HS RF: 0 aripiprazole 5 mg Tablet 5 mg PO QAM RF: 0 ibuprofen 600 mg Tablet 600 mg PO TID PRN (Reason: Pain) RF: 0 Referrals Referrals: Lino ALCOCER [Primary Care Provider] - The scribe's documentation has been prepared under my direction and personally reviewed by me in its entirety. I confirm that the note above accurately reflects all work, treatment, procedures, and medical decision making performed by me.
[2019-05-27] MEDS ORDERED: ICU PROTOCOL FOR HYPERGLYCEMIA PRN (02:00)
[2019-05-27] MEDS ORDERED: PIPERACILL/TAZOBAC CONSULT ACTIVE PRN (02:00)
[2019-05-27] MEDS: PIPERACILLIN/TAZOBACTAM 4.5 GM in DEXTROSE 5% 100 ML IV SCH ×3 (03:10→21:31)
[2019-05-27] MEDS: KETOROLAC 30 MG/ML VIAL IV PRN ×3 (03:46→18:02)
[2019-05-27 04:46] LABS: Basophils # (auto) 0.01 K/uL (0-0.2); Basophils % (auto) 0.1 %; Eosinophils # (auto) 0.01 K/uL (0-0.5); Eosinophils % (auto) 0.1 %; Hematocrit (blood only) 38.3 % (42-52); Hemoglobin 13.6 g/dL (14.0-18.0); Immature Granulocytes # (auto) 0.03 K/uL (0.00-0.02); Immature Granulocytes % (auto) 0.3 %; Lymphocytes # (auto) 0.74 K/uL (1.2-3.4); Lymphocytes % (auto) 8.4 %; Mean Corpuscular Hemoglobin 30.6 pg (25-34); Mean Corpuscular Hgb Conc 35.5 g/dL (32-36); Mean Corpuscular Volume 86.3 fL (80-100); Mean Platelet Volume 9.4 fL (7.4-10.4); Monocytes # (auto) 0.09 K/uL (0.11-0.59); Neutrophils # (auto) 7.95 K/uL (1.4-6.5); Neutrophils % (auto) 90.1 %; Platelet Count 309 K/uL (130-400); RDW Coefficient of Variation 13.5 % (11.5-14.5); RDW Standard Deviation 42.2 fL (36.4-46.3); Red Blood Count 4.44 M/uL (4.7-6.1); White Blood Count 8.83 K/uL (4.8-10.8)
[2019-05-27 04:58] LABS: Partial Thromboplastin Time 27.6 Seconds (21.0-31.0); Prothrombin Time 10.3 Seconds (9.0-12.0)
[2019-05-27 05:05] LABS: BUN Creatinine Ratio 10.6 (10-20); Calcium 8.7 mg/dl (8.5-10.1); Creatinine Clr Calc Pharmacy 132.5 ml/min; Est GFR (African American) 124.5; Est GFR (Non-African American) 107.5; Magnesium 2.2 mg/dl (1.8-2.4); Phosphorus 2.5 mg/dl (2.5-4.9)
[2019-05-27] MEDS ORDERED: RACEPINEPHRINE 2.25% NEBU SOLN 0.5 ML VIAL NEB STA (05:08)
--- NOTE | 2019-05-27 05:32 | Critical Care Progress Note ---
Date of Service May 27, 2019 Results & Data Vital Signs (Past 12 Hours) Vital Signs Temp Pulse Pulse Resp BP BP Pulse Ox 05/27/19 05:19 78 14 95 05/27/19 05:00 87 12 117/70 96 05/27/19 04:00 36.6 C 70 17 122/78 94 05/27/19 03:00 74 9 L 113/84 96 05/27/19 02:03 36.6 C 67 17 146/95 H 98 05/27/19 02:00 67 66 17 146/95 H 94 05/27/19 01:00 69 12 128/73 94 05/27/19 00:30 67 15 128/79 94 05/27/19 00:00 67 14 131/80 93 05/26/19 23:30 65 15 133/81 97 05/26/19 22:30 70 12 118/79 97 05/26/19 22:20 64 7 L 97 05/26/19 22:10 69 9 L 97 05/26/19 22:00 67 12 130/82 96 05/26/19 21:50 68 9 L 91 05/26/19 21:42 74 12 135/86 97 05/26/19 21:13 97 05/26/19 21:11 77 95 05/26/19 21:09 78 117/91 96 05/26/19 21:00 17 05/26/19 20:58 74 19 05/26/19 20:40 36.8 C 76 18 142/86 H 99 Pulse Ox 05/27/19 05:19 05/27/19 05:00 05/27/19 04:00 05/27/19 03:00 05/27/19 02:03 05/27/19 02:00 98 05/27/19 01:00 05/27/19 00:30 05/27/19 00:00 05/26/19 23:30 05/26/19 22:30 05/26/19 22:20 05/26/19 22:10 05/26/19 22:00 05/26/19 21:50 05/26/19 21:42 05/26/19 21:13 05/26/19 21:11 05/26/19 21:09 05/26/19 21:00 05/26/19 20:58 09/01/19 20:40 PG Care Time/CCT Total # of Minutes Spent Total Time Spent with Patient: Total time spent is greater than 50% in coordination of care (as documented) at patient's floor/unit and/or counseling patient:
[2019-05-27] MEDS: dexAMETHasone 4 MG in SYRINGE 0 ML IV SCH ×3 (06:12→18:00)
[2019-05-27] MEDS: ARIPiprazole 5 MG TAB PO SCH (08:12)
--- NOTE | 2019-05-27 08:54 | Critical Care Consultation ---
Date of Consultation May 27, 2019 Assessment & Plan (1) Postoperative edema: Impression: 38-year-old male status post radical neck for thyroid cancer. He was readmitted for concern about potential loss of airway. He is doing well this morning and appears much better than the images on his CT scan. Recommendations: 1. Potential airway compromise: The patient will continue to be monitored in the ICU. He is pending repeat ENT evaluation today. Will hold on disposition until ENT is been able to evaluate him possibly with flexible laryngoscopy. Continue steroids for now. 2. I will keep the patient n.p.o. in the event he requires urgent surgical intervention. 3. Thyroid cancer: The patient will require outpatient follow-up with medical oncology or endocrine oncology. Defer to ENT. 4. Ultimate disposition will depend on ENT evaluation. Plan was discussed with patient at bedside. Questions were answered the best my ability. (2) Cancer of thyroid: (3) Postoperative seroma: (4) Partial obstruction of airway: History of Present Illness Attending Physician: Casey Rowell DO History of Present Illness Asked by hospitalist to assist in management of this patient. History is obtained from discussion with the patient at bedside as well as review the electronic medical record. The patient is a 38-year-old male status post radical neck dissection for papillary thyroid cancer approximately 1 week ago. He has noted some neck swelling and some shortness of breath. He states that he feels short of breath with lying supine. He states his voice has been slightly hoarse but he has not had any issues coughing and denies any fevers chills or night sweats. He presented to the emergency room and was evaluated with CT scan of the neck which demonstrated a seroma. There was also some partial effacement of the airway with some narrowing in the supraglottic space concerning for potential airway compromise. The patient received steroids and was admitted to the intensive care unit for management. ENT evaluation is pending this morning. The patient's review of systems is as noted on the Allergies Allergy/AdvReac Type Severity Reaction Status Date / Time haloperidol [From Haldol] Allergy Severe Swelling Verified 05/26/19 22:57 of tongue and throat Home Medications Home Medications Medication Instructions Recorded Confirmed Type acetaminophen 650 mg PO TID PRN 05/16/19 05/26/19 History aripiprazole 5 mg PO QAM 05/16/19 05/26/19 History prazosin 2 mg PO HS 05/16/19 05/26/19 History ibuprofen 600 mg PO TID PRN 05/18/19 05/26/19 History Patient History Medical History ADHD Back pain Bipolar disorder Cancer Metastatic papillary thyroid carcinoma GERD (gastroesophageal reflux disease) Diet Controlled Kidney stones Post traumatic stress disorder Temporomandibular joint disorder per pre-anesthesia questionnaire Weight loss, unintentional Surgical History History of lithotripsy History of open reduction and internal fixation (ORIF) procedure left femur History of surgery on arm left forearm repair of fracture Family History Other No pertinent family history Social History Preferred Language: Bulgarian Communication Ability: Effective Press Box Custodian Required: No Beliefs That Will Affect Care: None Current Living Situation: Other Current Living Situation Comment: [place] Other Information That Helps Us Care for You: No Feels Safe at Home: Yes Safety Concerns: Feels Safe At This Time Smoking Status: Never smoker Tobacco Type: smokeless tobacco ; Do You Dip or Chew Tobacco: Yes ; Second Hand Exposure: Yes ; Tobacco Cessation Education Requested by Patient: No Hx Alcohol Use: No Hx Substance Use: No Review of Systems Review of Systems: See H&P. No changes Physical Exam Constitutional: WD/WN, vitals as above Neck: Some swelling appreciable on the left side of the neck. No clear fluctuance identified. Trachea does not appear deviated. Voice appears normal. Respiratory: normal respiratory effort, lungs clear to auscultation Cardiovascular: RRR, no murmur, no edema Gastrointestinal (Abdomen): normal bowel sounds, soft, nontender, no hepatosplenomegaly Skin: no rashes, warm and dry Results & Data Vital Signs (Past 12 Hours) Vital Signs Temp Pulse Pulse Resp BP BP Pulse Ox 05/27/19 08:00 36.8 C 67 84 20 109/73 05/27/19 06:00 69 10 L 135/81 94 05/27/19 05:19 78 14 95 05/27/19 05:00 87 12 117/70 96 05/27/19 04:00 36.6 C 70 17 122/78 94 05/27/19 03:00 74 9 L 113/84 96 05/27/19 02:03 36.6 C 67 17 146/95 H 98 05/27/19 02:00 67 66 17 146/95 H 94 05/27/19 01:00 69 12 128/73 94 05/27/19 00:30 67 15 128/79 94 05/27/19 00:00 67 14 131/80 93 05/26/19 23:30 65 15 133/81 97 05/26/19 22:30 70 12 118/79 97 05/26/19 22:20 64 7 L 97 05/26/19 22:10 69 9 L 97 05/26/19 22:00 67 12 130/82 96 05/26/19 21:50 68 9 L 91 05/26/19 21:42 74 12 135/86 97 05/26/19 21:13 97 05/26/19 21:11 77 95 05/26/19 21:09 78 117/91 96 05/26/19 21:00 17 05/26/19 20:58 74 19 Pulse Ox 05/27/19 08:00 98 05/27/19 06:00 05/27/19 05:19 05/27/19 05:00 05/27/19 04:00 05/27/19 03:00 05/27/19 02:03 05/27/19 02:00 98 05/27/19 01:00 05/27/19 00:30 05/27/19 00:00 05/26/19 23:30 05/26/19 22:30 05/26/19 22:20 05/26/19 22:10 05/26/19 22:00 05/26/19 21:50 05/26/19 21:42 05/26/19 21:13 05/26/19 21:11 05/26/19 21:09 05/26/19 21:00 05/26/19 20:58 Laboratory Results 05/27/19 04:26 05/27/19 04:[address] of the neck independently reviewed CT soft tissue neck w con HISTORY: swelling post thyroidectomy TECHNIQUE: Multiaxial CT images of the neck were performed following the use of intravenous contrast. COMPARISON STUDY: Neck CT 05/18/2019. FINDINGS: The visualized brain parenchyma and orbits are unremarkable. Skin dong at the anterior inferior neck base and along the left side of the neck. There is progressive diffuse subcutaneous edema within the neck most pronounced anteriorly. Trace fluid at the thyroidectomy site. Partially cystic lymphad enopathy is again noted. These remain unchanged. There are are a few enlarged retropharyngeal lymph nodes. This likely represents metastatic disease. Partially loculated left lateral neck/supraclavicular fluid collection measuring 5.6 x 3.3 cm. This is lateral to the sternocleidomastoid muscle and deep to the incision site. Mildly enlarged and partially cystic superior mediastinal lymph nodes also consistent with metastatic disease. No pneumothorax. No suspicious lytic or blastic osseous lesions. The paranasal sinuses and mastoid air cells are clear. The carotid and vertebral arteries are patent. The right internal jugular vein is patent. The left internal jugular vein at the base of the neck appears thrombosed. This is similar to the prior study. Normal esophagus. There is mild submucosal edema within the hypopharynx including the epiglottis and supraglottic soft tissues. The epiglottis measures 3.5 mm in thickness. This results in partial effacement of the hypopharynx/airway of up to 50% compared to the prior study. Partially calcified left sublingual soft tissue density remains unchanged. There is also a small amount of fluid surrounding the right sternocleidomastoid muscle. IMPRESSION: 1. Mild submucosal edema within the hypopharynx including the epiglottis and supraglottic soft tissues. The epiglottis measures 3.5 mm in thickness. This results in partial effacement of the hypopharynx/airway at the level of the epiglottis and supraglottic soft tissues of up to 50% compared to the prior study. Intubation could be performed for airway protection. 2. Subcutaneous edema has progressed throughout the neck. This is most pronounced anteriorly. 3. There is a partially loculated fluid collection within the left lateral neck base measuring 5.6 x 3.3 cm. This favors a postoperative seroma at this time. 4. Metastatic lymphadenopathy within the neck and chest is again noted. 5. The left internal jugular vein at the level of the neck base appears thrombosed. This is unchanged compared to the prior study. PG Care Time/CCT Total # of Minutes Spent Total Time Spent with Patient: Total time spent is greater than 50% in coordination of care (as documented) at patient's floor/unit and/or counseling patient: (1) Postoperative seroma Procedure type: endocrine system Surgical complication system/body Area: endocrine system Qualified Code(s): E89.822 - Postprocedural seroma of an endocrine system organ or structure following an endocrine system procedure
--- NOTE | 2019-05-27 09:59 | ENT Consultation ---
Date of Consultation May 27, 2019 Assessment & Plan (1) Postoperative edema: this is expected after bilateral neck dissection, discussed management with Dr. Jeter (2) Cancer of thyroid: s/p ttal thyroid, will need I 131 Rx in 6-8 weeks (3) Postoperative seroma: this should resolve with conservative management, observe for any sign of increase or infection, delay removal of skin dong until Monday/ 2 weeks postop (4) Internal jugular vein thrombosis: this is clot in superior portion of remaining jugular s/p resection, no intervention needed History of Present Illness Reason for Consultation: neck swollen Attending Physician: Casey Rowell DO History of Present Illness s/p total thyroid, left radical neck and right selected node dissection 11 days postop, path. papillary Ca with mets, CT showed 5 cm. left neck seroma at site of RND which would br expected, essentially normal epiglottis, clot in left jugular s/p left jugular resection due to tumor involvement, feels well, hungry and thirsty, labs including calcium OK Allergies Allergy/AdvReac Type Severity Reaction Status Date / Time haloperidol [From Haldol] Allergy Severe Swelling Verified 05/26/19 22:57 of tongue and throat Home Medications Home Medications Medication Instructions Recorded Confirmed Type acetaminophen 650 mg PO TID PRN 05/16/19 05/26/19 History aripiprazole 5 mg PO QAM 05/16/19 05/26/19 History prazosin 2 mg PO HS 05/16/19 05/26/19 History ibuprofen 600 mg PO TID PRN 05/18/19 05/26/19 History Patient History Medical History ADHD Back pain Bipolar disorder Cancer Metastatic papillary thyroid carcinoma GERD (gastroesophageal reflux disease) Diet Controlled Kidney stones Post traumatic stress disorder Temporomandibular joint disorder per pre-anesthesia questionnaire Weight loss, unintentional Surgical History History of lithotripsy History of open reduction and internal fixation (ORIF) procedure left femur History of surgery on arm left forearm repair of fracture Family History Other No pertinent family history Social History Preferred Language: Belgian Communication Ability: Effective Information Security Risk Analyst Required: No Beliefs That Will Affect Care: None Current Living Situation: Other Current Living Situation Comment: [facility] Other Information That Helps Us Care for You: No Feels Safe at Home: Yes Safety Concerns: Feels Safe At This Time Smoking Status: Never smoker Tobacco Type: smokeless tobacco ; Do You Dip or C hew Tobacco: Yes ; Second Hand Exposure: Yes ; Tobacco Cessation Education Requested by Patient: No Hx Alcohol Use: No Hx Substance Use: No Physical Exam Constitutional: WD/WN, vitals as above Eyes: PERRL, conjunctivae normal, anicteric sclerae ENMT: external ear and nose normal, oropharynx normal Neck: trachea midline, no thyromegaly normal visual inspection s/p bilateral neck dissection, no sign of tracheal deviation or compression, left neck seroma not bulging, not palpable, soft, not red, incision line pink with no sign of infection Results & Data Vital Signs (Past 12 Hours) Vital Signs Temp Pulse Pulse Resp BP BP Pulse Ox 05/27/19 08:00 36.8 C 67 84 20 109/73 05/27/19 06:00 69 10 L 135/81 94 05/27/19 05:19 78 14 95 05/27/19 05:00 87 12 117/70 96 05/27/19 04:00 36.6 C 70 17 122/78 94 05/27/19 03:00 74 9 L 113/84 96 05/27/19 02:03 36.6 C 67 17 146/95 H 98 05/27/19 02:00 67 66 17 146/95 H 94 05/27/19 01:00 69 12 128/73 94 05/27/19 00:30 67 15 128/79 94 05/27/19 00:00 67 14 131/80 93 05/26/19 23:30 65 15 133/81 97 05/26/19 22:30 70 12 118/79 97 05/26/19 22:20 64 7 L 97 05/26/19 22:10 69 9 L 97 05/26/19 22:00 67 12 130/82 96 05/26/19 21:50 68 9 L 91 Pulse Ox 05/27/19 08:00 98 05/27/19 06:00 05/27/19 05:19 05/27/19 05:00 05/27/19 04:00 05/27/19 03:00 05/27/19 02:03 05/27/19 02:00 98 05/27/19 01:00 05/27/19 00:30 05/27/19 00:00 05/26/19 23:30 05/26/19 22:30 05/26/19 22:20 05/26/19 22:10 05/26/19 22:00 05/26/19 21:50 (1) Postoperative seroma Procedure type: endocrine system Surgical complication system/body Area: endocrine system Qualified Code(s): E89.822 - Postprocedural seroma of an endocrine system organ or structure following an endocrine system procedure (2) Internal jugular vein thrombosis Laterality: left Qualified Code(s): I82.C12 - Acute embolism and thrombosis of left internal jugular vein
--- NOTE | 2019-05-27 14:42 | Hospitalist Progress Note ---
Date of Service May 27, 2019 Assessment & Plan (1) Post-operative pain: (2) Postoperative deep vein thrombosis: (3) Metastatic papillary carcinoma: (4) PTSD (post-traumatic stress disorder): (5) Partial obstruction of airway: 38-year-old male with history of metastatic papillary thyroid cancer status post total thyroidectomy (left radical neck dissection, right selective node dissection) on 05/17/[address] Lopez presents with worsening neck swelling and discomfort. Concern for submucosal edema causing partial airway obstruction, seroma and persistent left IJ vein thrombosis Partial airway obstruction secondary to submucosal edema and seroma much better today, less swelling, less hoarseness, breathing easier even when laying down continue dexamethasone 4 mg every 6 hours scheduled and Zosyn ENT consult appreciated, much of the findings are to be expected continue to follow for clinical improvement possible d/c tomorrow allow patient liquids and soft diet stop IV fluids Left IJ vein thrombosis Thrombosis of jugular vein secondary to surgical ligation No anticoagulation required, this is expected finding History of PTSD/bipolar Continue aripiprazole and prazosin Subjective patient doing better since admission, less swelling, less difficulty breathing appreciate ENT consultation continue steroids, most of the findings on CT would be expected after his extensive surgery patient was able to swallow some soft foods earlier, drinking okay discussed that he could likely be d/c tomorrow, he is okay with this plan Review of Systems Review of Systems: All systems reviewed & are unremarkable except as noted in HPI & below Constitutional: no fever, no chills, no sweats, no fatigue and no weakness Ear, Nose, Mouth, Throat: + hoarseness (slight) and + pain with swallowing Cardiovascular: + chest pain Physical Exam Constitutional: WD/WN, vitals as above Eyes: PERRL, conjunctivae normal, anicteric sclerae ENMT: external ear and nose normal, oropharynx normal Neck: trachea midline, + anterior neck swelling and + neck tender; + abnormal visual inspection (large incision along left side of neck from radical dissection) Thyroid: + abnormal thyroid (surgically excised) Respiratory: normal respiratory effort, lungs clear to auscultation no stridor Cardiovascular: RRR, no murmur, no edema Gastrointestinal (Abdomen): normal bowel sounds, soft, nontender, no hepatosplenomegaly Musculoskeletal: no cyanosis or clubbing, extremities motor strength 5/5 Skin: no rashes, warm and dry Neurologic: patellar DTR's 2+ bilat, sensation intact and PERRL, EOMI, accommodation nl, no face palsy, no dysarthria Psychiatric: A+Ox3, euthymic affect Lymphatic: no cervical or axillary lymphadenopathy Results & Data Vital Signs (Past 12 Hours) Vital Signs Temp Pulse Pulse Resp BP BP Pulse Ox 05/27/19 11:45 36.8 C 75 20 134/81 96 05/27/19 11:01 71 18 95 05/27/19 11:00 70 18 118/85 94 05/27/19 10:01 76 20 96 05/27/19 10:00 73 13 138/82 91 05/27/19 09:01 78 16 95 05/27/19 09:00 74 12 109/79 94 05/27/19 08:01 75 14 93 05/27/19 08:00 36.8 C 74 84 19 123/78 109/73 94 05/27/19 07:01 70 16 93 05/27/19 07:00 69 16 109/73 93 05/27/19 06:00 69 10 L 135/81 94 05/27/19 05:19 78 14 95 05/27/19 05:00 87 12 117/70 96 05/27/19 04:00 36.6 C 70 17 122/78 94 05/27/19 03:00 74 9 L 113/84 96 Pulse Ox 05/27/19 11:45 05/27/19 11:01 05/27/19 11:00 05/27/19 10:01 05/27/19 10:00 05/27/19 09:01 05/27/19 09:00 05/27/19 08:01 05/27/19 08:00 98 05/27/19 07:01 05/27/19 07:00 05/27/19 06:00 05/27/19 05:19 05/27/19 05:00 05/27/19 04:00 05/27/19 03:00 Laboratory Results Laboratory Results - last 24 hr 05/26/19 05/26/19 05/26/19 20:56 20:56 21:13 WBC 9.02 RBC 4.64 L Hgb 14.3 POC Hgb 13.9 L Hct 40.3 L POC Hct 41 L MCV 86.9 MCH 30.8 MCHC 35.5 RDW Std Deviation 42.5 RDW Coeff of Regan 13.6 Plt Count 341 MPV 9.5 Immature Gran % (Auto) 0.2 Neut % (Auto) 58.9 Lymph % (Auto) 30.3 [place] % (Auto) 7.2 Eos % (Auto) 3.1 Baso % (Auto) 0.3 Immature Gran # (Auto) 0.02 Neut # (Auto) 5.31 Lymph # (Auto) 2.73 [place] # (Auto) 0.65 H Eos # (Auto) 0.28 Baso # (Auto) 0.03 PT INR APTT PTT Ratio POC Sodium 140 Sodium 140 POC Potassium 3.6 Potassium 3.7 POC Chloride 101 Chloride 107 Carbon Dioxide 27 POC Total CO2 27 Anion Gap 6.0 POC Anion Gap 16.0 POC BUN 9 BUN 10 Creatinine 0.88 POC Creatinine 0.9 Est Cr Clr Drug Dosing 134.4 Est GFR ( Amer) 124.5 Est GFR (Non-Af Amer) 107.5 BUN/Creatinine Ratio 11.4 Glucose 100 H POC Glucose POC Glucose (other) 98 Calcium 8.9 POC Ioniz Calcium [place] 1.21 Phosphorus Magnesium Total Bilirubin 0.2 AST 13 L ALT 23 Alkaline Phosphatase 51 Total Protein 6.7 Albumin 3.7 Globulin 3.0 Albumin/Globulin Ratio 1.2 Nasal Screen MRSA (PCR) 05/27/19 05/27/19 05/27/19 03:15 04:26 04:26 WBC 8.83 RBC 4.44 L Hgb 13.6 L POC Hgb Hct 38.3 L POC Hct MCV 86.3 MCH 30.6 MCHC 35.5 RDW Std Deviation 42.2 RDW Coeff of [place] 13.5 Plt Count 309 MPV 9.4 Immature Gran % (Auto) 0.3 Neut % (Auto) 90.1 Lymph % (Auto) 8.4 [place] % (Auto) 1.0 Eos % (Auto) 0.1 Baso % (Auto) 0.1 Immature Gran # (Auto) 0.03 H Neut # (Auto) 7.95 H Lymph # (Auto) 0.74 L [place] # (Auto) 0.09 L Eos # (Auto) 0.01 Baso # (Auto) 0.01 PT INR APTT PTT Ratio POC Sodium Sodium 139 POC Potassium Potassium 4.0 POC Chloride Chloride 107 Carbon Dioxide 25 POC Total CO2 Anion Gap 7.0 POC Anion Gap POC BUN BUN 9 Creatinine 0.88 POC Creatinine Est Cr Clr Drug Dosing 132.5 Est GFR ( Amer) 124.5 Est GFR (Non-Af Amer) 107.5 BUN/Creatinine Ratio 10.6 Glucose 151 H POC Glucose POC Glucose (other) Calcium 8.7 POC Ioniz Calcium [place] Phosphorus 2.5 Magnesium 2.2 Total Bilirubin AST ALT Alkaline Phosphatase Total Protein Albumin Globulin Albumin/Globulin Ratio Nasal Screen MRSA (PCR) Negative 05/27/19 05/27/19 04:26 05:18 WBC RBC Hgb POC Hgb Hct POC Hct MCV MCH MCHC RDW Std Deviation RDW Coeff of Regan Plt Count MPV Immature Gran % (Auto) Neut % (Auto) Lymph % (Auto) [place] % (Auto) Eos % (Auto) Baso % (Auto) Immature Gran # (Auto) Neut # (Auto) Lymph # (Auto) [place] # (Auto) Eos # (Auto) Baso # (Auto) PT 10.3 INR 1.0 APTT 27.6 PTT Ratio 1.0 POC Sodium Sodium POC Potassium Potassium POC Chloride Chloride Carbon Dioxide POC Total CO2 Anion Gap POC Anion Gap POC BUN BUN Creatinine POC Creatinine Est Cr Clr Drug Dosing Est GFR ( Amer) Est GFR (Non-Af Amer) BUN/Creatinine Ratio Glucose POC Glucose 145 H POC Glucose (other) Calcium POC Ioniz Calcium [place] Phosphorus Magnesium Total Bilirubin AST ALT Alkaline Phosphatase Total Protein Albumin Globulin Albumin/Globulin Ratio Nasal Screen MRSA (PCR) Medications Administered Current Inpatient Medications Aripiprazole (Abilify) 5 mg PO QAM REPLACED BY [facility] Stop: 06/26/19 08:59 Last Admin: 05/27/19 08:12 Dose: 5 mg Documented by: Dexamethasone 4 mg/ Syringe 1 mls @ 1 mls/min IV Q6H REPLACED BY [facility] Stop: 06/26/19 05:59 Last Admin: 05/27/19 11:24 Dose: 1 mls/min Documented by: Piperacillin Sod/Tazobactam (Sod 4.5 gm/ Dextrose) 120 mls @ 30 mls/hr IV Q8H REPLACED BY [facility]; Protocol Stop: 06/06/19 03:59 Last Admin: 05/27/19 12:05 Dose: 30 mls/hr Documented by: Ioversol (Optiray 320 100ml) 94 ml IV ONCE PRN PRN Reason: Interaction Checking Stop: 05/30/19 21:31 Last Admin: 05/26/19 21:32 Dose: 94 ml Documented by: Ketorolac Tromethamine (Toradol) 30 mg IV Q6H PRN PRN Reason: Pain Stop: 06/01/19 03:33 Last Admin: 05/27/19 10:51 Dose: 30 mg Documented by: Miscellaneous ([facility] Protocol For Hyperglycemia) 1 ea N/A PRN PRN; Protocol PRN Reason: Hyperglycemia Protocol Stop: 05/29/19 01:59 Miscellaneous Information (Consult) 1 ea N/A UD PRN PRN Reason: Consult Stop: 06/26/19 01:59 Morphine Sulfate (Morphine Sulfate) 2 mg IV Q4H PRN PRN Reason: Pain Stop: 06/10/19 14:29 Morphine Sulfate (Morphine Sulfate) 4 mg IV Q4H PRN PRN Reason: Severe Pain Stop: 06/10/19 14:29 Prazosin HCl (Prazosin Hcl) 2 mg PO HS RENARD Stop: 06/26/19 20:59 PG Care Time/CCT Total # of Minutes Spent Total Time Spent with Patient: Total time spent is greater than 50% in coordination of care (as documented) at patient's floor/unit and/or counseling patient: (1) Postoperative deep vein thrombosis Encounter type: initial encounter Qualified Code(s): T81.89XA - Other complications of procedures, not elsewhere classified, initial encounter; I82.409 - Acute embolism and thrombosis of unspecified deep veins of unspecified lower extremity
[2019-05-27] MEDS: MoRPHine SULFATE 4 MG/ML 1 ML CARP\\VIAL IV PRN ×2 (15:39→21:37)
[2019-05-27] MEDS ORDERED: PRAZOSIN HCL 1 MG CAP PO SCH (21:00)
[2019-05-28] MEDS: MoRPHine SULFATE 2 MG/ML CARP IV PRN ×4 (01:38→15:15)
[2019-05-28] MEDS: PIPERACILLIN/TAZOBACTAM 4.5 GM in DEXTROSE 5% 100 ML IV SCH ×2 (03:56→12:10)
[2019-05-28] MEDS: KETOROLAC 30 MG/ML VIAL IV PRN ×3 (03:58→16:02)
[2019-05-28] MEDS: dexAMETHasone 4 MG in SYRINGE 0 ML IV SCH ×3 (05:53→12:10)
[2019-05-28 06:02] LABS: Basophils # (auto) 0.01 K/uL (0-0.2); Basophils % (auto) 0.1 %; Hematocrit (blood only) 36.8 % (42-52); Hemoglobin 12.9 g/dL (14.0-18.0); Immature Granulocytes # (auto) 0.05 K/uL (0.00-0.02); Immature Granulocytes % (auto) 0.3 %; Lymphocytes # (auto) 0.92 K/uL (1.2-3.4); Lymphocytes % (auto) 6.3 %; Mean Corpuscular Hemoglobin 30.1 pg (25-34); Mean Corpuscular Hgb Conc 35.1 g/dL (32-36); Monocytes # (auto) 1.09 K/uL (0.11-0.59); Monocytes % (auto) 7.5 %; Neutrophils # (auto) 12.43 K/uL (1.4-6.5); Neutrophils % (auto) 85.8 %; Platelet Count 313 K/uL (130-400); RDW Coefficient of Variation 13.6 % (11.5-14.5); RDW Standard Deviation 42.2 fL (36.4-46.3); Red Blood Count 4.28 M/uL (4.7-6.1)
[2019-05-28 06:39] LABS: BUN Creatinine Ratio 11.8 (10-20); Calcium 8.9 mg/dl (8.5-10.1); Creatinine Clr Calc Pharmacy 113.2 ml/min; Est GFR (African American) 104.8; Est GFR (Non-African American) 90.4
[2019-05-28] MEDS: ARIPiprazole 5 MG TAB PO SCH (07:29)
--- NOTE | 2019-05-28 15:59 | Discharge Summary ---
Date of Service May 28, 2019 Admission HPI Per Admitting Provider 38-year-old male with history of metastatic papillary thyroid cancer status post total thyroidectomy (left radical neck dissection, right selective node dissection) on 05/17/[address] Lopez presents with worsening neck swelling and discomfort. Patient had presented previously to the emergency room on 05/19/2019, was found to have acute nearly occlusive deep venous thrombus within the left internal jugular vein but not started on anticoagulation; subcutaneous edema, deep tissue air with skin dong and surgical drainage catheter but no drainable fluid collection and airway was patent. Today he presents with throat pain when eating or drinking especially foods that are not hot or cold and tightness in throat especially when he lays down. Associated with left shoulder and upper chest tightness as well, chills and sweats at night. Reports not getting adequate pain management at the [facility] and was sent back to the emergency room. Tonight he was found to have: Mild submucosal edema within the hypopharynx including the epiglottis and supraglottic soft tissues, epiglottis measures 3.5 mm in thickness resulting in partial effacement of the hypopharynx/airway at the level of the epiglottis and supraglottic soft tissues of up to 50% compared to the prior study; Subcutaneous edema has progressed throughout the neck most pronounced anteriorly; there is a partially loculated fluid collection within the left lateral neck base measuring 5.6 x 3.3 cm - favors a postoperative seroma, left IJ vein still thrombosed. Patient denies any shortness of breath and remains on room air in the ED. Denies any fever, chest pain, abdominal pain, nausea, vomiting, diarrhea, constipation, dysuria, hematuria. Principal Diagnosis Partial airway obstruction due to submucosal swelling and edema following thyroidectomy and radical neck dissection Discharge Exam Constitutional WD/WN, vitals as above Eyes PERRL, conjunctivae normal, anicteric sclerae ENMT external ear and nose normal, oropharynx normal Neck trachea midline and + anterior neck swelling; + abnormal visual inspection (large incision along left side of neck from radical dissection) Thyroid: + abnormal thyroid (surgically excised) Respiratory normal respiratory effort, lungs clear to auscultation no stridor Cardiovascular RRR, no murmur, no edema Gastrointestinal (Abdomen) normal bowel sounds, soft, nontender, no hepatosplenomegaly Musculoskeletal no cyanosis or clubbing, extremities motor strength 5/5 Skin no rashes, warm and dry Neurologic patellar DTR's 2+ bilat, sensation intact and PERRL, EOMI, accommodation nl, no face palsy, no dysarthria Psychiatric A+Ox3, euthymic affect Lymphatic no cervical or axillary lymphadenopathy Discharge Data Allergies Allergy/AdvReac Type Severity Reaction Status Date / Time haloperidol [From Haldol] Allergy Severe Swelling Verified 05/26/19 22:57 of tongue and throat Consultations 05/27/19 02:00 Consult Case Management - Discharge Planning Routine Consult [employer] Artist Routine Consult Otolaryngology (Head and Neck) Routine Ordered Studies 05/26/19 20:48 CT soft tissue neck w con Stat Hospital Course (1) Post-operative pain: (2) Postoperative deep vein thrombosis: (3) Metastatic papillary carcinoma: (4) PTSD (post-traumatic stress disorder): (5) Partial obstruction of airway: 38-year-old male with history of metastatic papillary thyroid cancer status post total thyroidectomy (left radical neck dissection, right selective node dissection) on 05/17/[address] Lopez presents with worsening neck swelling and discomfort. Concern for submucosal edema causing partial airway obstruction, seroma and persistent left IJ vein thrombosis Partial airway obstruction secondary to submucosal edema and seroma much better after steroids, less swelling, less hoarseness, breathing easier even when laying down continue dexamethasone 4 mg BID for two days on discharge ENT consult appreciated, much of the findings are to be expected continue to follow for clinical improvement can return to SCI allow patient liquids and soft diet - tolerating without difficulty will follow up later in the week with Dr. Lopez for staple removal Left IJ vein thrombosis Thrombosis of jugular vein secondary to surgical ligation No anticoagulation required, this is expected finding History of PTSD/bipolar Continue aripiprazole and prazosin s/p Thyroidectomy calcium stable will follow up with oncology for metastatic papillary carcinoma, can be referred by ENT Total Time Total Time Spent Total Time Spent (In Minutes): 32 minutes Total Time Includes: Examination of the Patient, Discharge Planning, Medication Reconciliation and Communication With Other Providers (Dr. Lopez) Discharge Plan Discharge Items [facility] Disposition: [facility] Reason For Visit: PARTIAL AIRWAY EFFACEMENT - NECK SUBMUCOSAL EDEMA Discharge Diagnosis: Post operative edema and seroma Condition: Good Discharge Goals: Decrease discomfort and Improve function Activity: Resume your previous activity Non-emergency contact: Primary Care Provider and Surgeon Call non-emergency contact if: you have any medication questions, your symptoms worsen, your pain is not controlled and you have a fever Follow-up/Referrals: Lino ALCOCER [Primary Care Provider] - Diet: Regular Addtl Provider Instructions: Medications: - DEXAMETHASONE: continue to take 2mg twice a day for 4 more doses, next dose this evening - IBUPROFEN: use 600mg three times a day as needed for pain/swelling Post operative edema and seroma evaluated with CT neck and soft tissues, showed expected edema and seroma, no signs of infection/abscess ENT saw patient in the hospital, discussed that the findings were typical post op changes they recommend follow up with [facility], on Monday05/31/19 for staple removal in the office will use Dexamethasone and Ibuprofen to decrease inflammation and swelling no restrictions with eating, can use soft diet if he tolerates it well, really up to the patient FOLLOW UP - please call office of [facility], for appt on Monday05/31/19 for surgical follow up and staple removal, Prescriptions: New dexamethasone 2 mg tablet 2 mg PO BID Qty: 4 RF: 0 Continued acetaminophen 325 mg Tablet 650 mg PO TID PRN (Reason: Pain) RF: 0 prazosin 2 mg Capsule 2 mg PO HS RF: 0 aripiprazole 5 mg Tablet 5 mg PO QAM RF: 0 ibuprofen 600 mg Tablet 600 mg PO TID PRN (Reason: Pain) RF: 0 Stand-Alone Forms: [facility] Discharge Orders: Discharge Order (Routine); Ordered 05/28/19 Ordered By: Casey Rowell Admission Data Admit Date/Time: 05/27/19 00:41 Attending Provider: Casey Rowell Admit Provider: Elaine Ordaz Primary Care Provider: Lino ALCOCER Other Providers: Lev Peres ; [place] Service: Medical Other Interventions: Discharge Summary Assessment (RN) Last Done: 05/28/19 13:34 DC Date/Time DO NOT enter until pt leaves facility: 05/28/19 18:30
== END 2019-05-28 18:30 | DRG 300 ==
LOC: ED 20:37 → 1E 05-27 00:41 → SUATTDRO 05-27 00:41 → 1E 05-27 01:34 → 3W 05-27 11:45
DX: F31.9 Bipolar disorder, unspecified; E89.0 Postprocedural hypothyroidism; Y92.149 Unspecified place in prison as the place of occurrence of the external cause; F43.10 Post-traumatic stress disorder, unspecified; F90.9 Attention-deficit hyperactivity disorder, unspecified type; J98.8 Other specified respiratory disorders; Z87.891 Personal history of nicotine dependence; Z85.850 Personal history of malignant neoplasm of thyroid; K21.9 Gastro-esophageal reflux disease without esophagitis; G89.18 Other acute postprocedural pain; R13.10 Dysphagia, unspecified; E89.822 Postprocedural seroma of an endocrine system organ or structure following an endocrine system procedure; I82.C12 Acute embolism and thrombosis of left internal jugular vein; Y83.8 Other surgical procedures as the cause of abnormal reaction of the patient, or of later complication, without mention of misadventure at the time of the procedure